=== PATIENT | female | born 1975 | race Caucasian/White ===

== ENCOUNTER 2017-11-19 14:10 | Observation (INO) | payer SELFPAY ==
[~2017-11-19] VITALS: Ht 160 cm; Wt 52.0 kg
[~2017-11-19 14:10] MED LIST: ATIVAN1 MG PO; CIPROFLOXACN500 MG PO; DENIES CURRENT MEDS; LIBRIUM25 M1 PO; NAPROSYN500 MG PO; ONDANSETRON4 MG PO; PHENERGAN25 MG/TAB PO; PREVACID30 M2 PO; PROTONIX40 MG PO; THIAMINE HCL100 MG PO; TRAMADOL HCL50 MG PO; ULTRAM50 M1 PO; ULTRAM50 MG PO; ZOFRAN ODT4 MG PO
--- NOTE | 2017-11-19 14:19 | NUR ---
PT TO ROOM VIA WHEELCHAIR.
[2017-11-19 14:58] LABS: HEMATOCRIT 40.1 % (37.0-47.0); HEMOGLOBIN 14.4 g/dl (12.0-16.0); IMMATURE GRANULOCYTES 0.8 % (0.0-1.0); MEAN CELL VOLUME 106.9 fL CALC (80.0-100.0); MEAN CORPUSCULAR HGB 38.4 pG CALC (26.0-32.0); MEAN CORPUSCULAR HGB CONC 35.9 g/L CALC (32.0-36.0); NEUT# 5.84 thou/uL (2.00-7.15); RED BLOOD COUNT 3.75 mill/uL (4.20-5.60); RED CELL DISTRI WIDTH 14.1 % (11.5-15.5)
--- NOTE | 2017-11-19 15:30 | NUR ---
PT PROVIDED MEDS FOR HEADACHE, TREMORS. DIFFICULT IV STICK, NOW WITH LEJ STARTED BY EVA. PT DID SAY THAT SHE FELT LIKE SHE MAY HAVE A SEIZURE. ATIVAN PROVIDED PER EDP ORDER, SEIZURE PADS PLACED.
[2017-11-19 15:39] LABS: ALBUMIN 4.4 g/dL (3.2-5.0); ANION GAP 23 (6-22 (CALC)); BILIRUBIN, TOTAL 0.8 mg/dL (0.0-1.4); BUN 5 mg/dL (7-17); BUN/CREATININE RATIO 10 (12-20 (CALC)); CARBON DIOXIDE 22 mmol/l (22-30); CHLORIDE 102 mmol/l (95-108); CREATININE 0.5 mg/dL (0.5-1.0); ETHYL ALCOHOL 76 mg/dl (0-30); GFR > 60 ML/MIN (>=60 (CALC)); GFR FOR AFR.AMER. > 60 ML/MIN (>=60 (CALC)); LIPASE 159 u/l (23-300); POTASSIUM 3.9 mmol/l (3.5-5.1); SGPT/ALT 61 u/l (9-52); SODIUM 142 mmol/l (137-146); TOTAL PROTEIN 7.7 g/dL (6.3-8.2)
[2017-11-19 15:43] LABS: ALKALINE PHOSPHATASE 152 u/l (38-126); SGOT/AST 111 u/l (14-36)
[2017-11-19 15:44] LABS: MAGNESIUM 0.9 mg/dL (1.6-2.3)
[2017-11-19 16:14] LABS: INTERNATIONAL NORMALIZED RATIO 1.1 RATIO (0.7-1.3); PROTHROMBIN TIME 11.9 SECONDS (9.0-12.5)
--- NOTE | 2017-11-19 16:34 | NUR ---
PT AT REST IN THE STRETCHER, HAS HAD CT SCAN. BANANA BAG INFUSING ALONG WITH MAGNESIUM. LIGHTS DIMMED FOR COMFORT. NO SEIZURE ACTIVITY SINCE ARRIVAL.
[2017-11-19 16:52] LABS: URINE BILIRUBIN - DIPSTICK NEGATIVE (NEGATIVE); URINE BLOOD DIPSTICK NEGATIVE (NEGATIVE); URINE COLOR YELLOW; URINE GLUCOSE - DIPSTICK NEGATIVE (NEGATIVE); URINE KETONE TRACE mg/dL (NEGATIVE); URINE LEUK ESTERASE NEGATIVE (NEGATIVE); URINE NITRITE - DIPSTICK NEGATIVE (Negative); URINE PROTEIN - DIPSTICK NEGATIVE (NEG-TRACE); URINE SPECIFIC GRAVITY 1.015; URINE UROBILINOGEN - DIPSTICK 0.2 E.U./dL (0.2)
[2017-11-19 16:53] LABS: URINE CLARITY CLEAR
[2017-11-19 16:56] LABS: BARBITURATES NEGATIVE (NEGATIVE); COCAINE NEGATIVE (NEGATIVE); METHADONE NEGATIVE (NEGATIVE); OXCYCODONE NEGATIVE (NEGATIVE); TETRAHYDROCANNABIONOL NEGATIVE (NEGATIVE); TRICYLIC ANTIDEPRESSANTS NEGATIVE (NEGATIVE)
--- NOTE | 2017-11-19 17:45 | NUR ---
Admission Note Report Given to: SBAR PRINTED TO FLOOR Transported by: Wheelchair X Stretcher Transported with: X Nurse Transporter X Patent IV O2 X Director Of Marketing Analytics
--- NOTE | 2017-11-19 17:47 | NUR ---
PT ARRIVED TO [facility] VIA STRETCHER ACCOMPANIED BY MATTI SERNA. PT TRANSFERED TO BED. VERY UNSTEADY GAIT. BODY TREMORRS NOTED. PT REPORTS HX OF SEIZURES. BED RAILS PADDED PER PROTOCOL. FALL PRECAUTIONS REINFORCED. PT DOES NOT AGREE TO CALL FOR ASSISTANCE AT ALL TIMES TO EXIT BED, BED ALARM SET FOR SAFETY. PLAN OF CARE DISCUSSED. NPO EXCEPT SIPS OF WATER REVIEWED. CALL LIGHT REVIEWED AND IN REACH. PT STATES UNDERSTANDING.
--- NOTE | 2017-11-19 17:55 | NUR ---
PT TAKEN TO ROOM 270 WITHOUT INCIDENT, REPORT WAS TO YUNIER.
[2017-11-19 18:43] VITALS: BP 138/83
--- NOTE | 2017-11-19 20:34 | NUR ---
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
--- NOTE | 2017-11-19 21:30 | NUR ---
REPORT RECEIVED FROM WALLY CHINO. PT AWAKE RESTING IN BED WATCHING T.V. PT IS PLEASANT, CALM AND COOPERATIVE. PT IS ALERT AND ORIENTED X4. RESP EVEN AND UNLABORED. VSS. B/P 138/83. NO TREMORS NOTED. LUNGS CLEAR BILAT. ABD SOFT AND NONDISTENDED WITH BOWEL SOUNDS PRESENT. NO LOWER EXT EDEMA NOTED. PEDAL PULSES PALPATED BILAT. LEFT IJ PATENT WITH DRESSING CLEAN,DRY AND INTACT. IVF BANANA BAG INFUSING AT 125CC/HR. PT DENIES ANY PAIN OR DISCOMFORT AT THIS TIME. PT HAD RECEIVED MOTRIN EARLIER IN THE SHIFT. TELE INTACT READING SR PER E.D. BED ALARM IS ON FOR PTS SAFETY. YELLOW FALL BRACELET AND YELLOW SOCK ON PT. PT INSTRUCTED NOT TO ATTEMPT TO GET OOB WITHOUT STAFF ASSIST AND PTS STATES SHE UNDERSTANDS. CIWA SCORE IS 0 AT THIS TIME. PT IS NPO. FREQUENT ROUNDS MADE. CALL YAO WITHIN REACH.
[2017-11-20] VITALS (7 sets, daily range): BP systolic 119–144; BP diastolic 81–90
--- NOTE | 2017-11-20 00:20 | NUR ---
PT RESTING IN BED WITH EYES CLOSED. RESP EVEN AND UNLABORED. NO DISTRESS NOTED. LEFT IJ IS PATENT NO REDNESS OR SWELLING AT SITE. IVF INFUSING. NO S/S OF ETOH WITHDRAW NOTED. CIWA SCALE 0. WILL CONTINUE TO CLOSELY MONITOR. TELE INTACT. FREQUENT ROUNDS MADE. CALL YAO WITHIN REACH. BED ALARM IS ON FOR PTS SAFETY.
--- NOTE | 2017-11-20 03:04 | NUR ---
PT WOKE BY IV. BANANA BAG FINISHED INFUSING. LEFT IJ IS PATENT. IVF NSS HUNG AND INFUSING AT 125CC/HR. PT IS CALM. PLEASANT AND COOPERATIVE. NO S/S OF WITHDRAW NOTED. PT STATES SHE HASNT BEEN ABLE TO REALLY SLEEP WELL. MEDICATED WITH LIBRIUM 25MG ONE TAB P.O. RESP EVEN AND UNLABORED. BED ALARM REMAINS ON FOR PTS SAFETY. FREQUENT ROUNDS MADE. CALL YAO WITHIN REACH.
--- NOTE | 2017-11-20 04:49 | NUR ---
PT RESTING IN BED WITH EYES CLOSED. RESP EVEN AND UNLABORED. LEFT IJ IS PATENT WITH NO REDNESS OR SWELLING AT SITE. ASSESSMENT UNCHANGED. FREQUENT ROUNDS MADE. BED ALARM REMAINS ON FOR PTS SAFETY. CALL YAO WITHIN REACH.
[2017-11-20 06:24] LABS: ANION GAP 13 (6-22 (CALC)); BUN 3 mg/dL (7-17); BUN/CREATININE RATIO 8 (12-20 (CALC)); CARBON DIOXIDE 25 mmol/l (22-30); CHLORIDE 103 mmol/l (95-108); CREATININE 0.4 mg/dL (0.5-1.0); GFR > 60 ML/MIN (>=60 (CALC)); GFR FOR AFR.AMER. > 60 ML/MIN (>=60 (CALC)); POTASSIUM 3.2 mmol/l (3.5-5.1); SODIUM 138 mmol/l (137-146)
[2017-11-20 06:25] LABS: MAGNESIUM 1.8 mg/dL (1.6-2.3)
--- NOTE | 2017-11-20 07:49 | NUR ---
SHIFT CHANGE REPORT FROM VAMSI LOWERY AWAKE ALERT AND ORIENTED, NO C/O DISCOMFORT AT THIS TIME, TELE MONITOR IN PLACE, CALL YAO IN REACH.
--- NOTE | 2017-11-20 12:20 | NUR ---
REPORT RECEIVED FROM MATTI MCCLENDON;PT RESTING IN SUPINE POSITION;INTRODUCED SELF TO PT AND POC DISCUSSED;PT COMPLAINS OF ABDOMINAL PAIN,PAIN MEDICATION SCHEDULING RE-EDUCATED AND PT VERBALIZES UNDERSTANDING;IV SITE PATENT;ENCOURAGED TO CALL FOR ASSISTANCE IF NEEDED;CALL LIGHT IN REACH;WILL CONTINUE TO MONITOR
--- NOTE | 2017-11-20 13:25 | NUR ---
PT RESTING IN SUPINE POSITION WITH SEIZURE PRECAUTIONS IN PLACE;NOTIFIED PT OF WAIT TIME FOR NEW ORDERS TO BE PLACED;PT CONTINUES TO COMPLAIN OF ABDOMINAL PAIN BUT REFUSES PAIN MEDICATION CURRENTLY ON MAR;IV SITE TO [facility] PATENT INFUSING NS AT 125ML/HR WITH EASE,SITE APPEARS HEALTHY;TELE MONITOR IN PLACE;ENCOURAGED PT TO CALL FOR ASSISTANCE IF NEEDED;CALL LIGHT IN REACH;WILL CONTINUE TO MONITOR
--- NOTE | 2017-11-20 13:45 | NUR ---
PT MEDICATED WITH TORADOL 15MG IVP FOR ABDOMINAL PAIN RATING 7/10 ON THE PAIN SCALE;WILL MONITOR FOR EFFECTIVENESS
--- NOTE | 2017-11-20 14:40 | NUR ---
PT RESTING IN SEMI FOWLERS POSITION;PT REPORTS PAIN LEVEL IS UNCHANGED SINCE TORADOL ADMINISTRATION;ANRP TO BE NOTIFIED;WILL CONTINUE TO MONITOR
--- NOTE | 2017-11-20 16:30 | NUR ---
PT RESTING IN SUPINE POSITION;IV FLUIDS INFUSING WELL TO RIJ;SEIZURE PRECAUTIONS IN PLACE;PT DENIES ANY CURRENT NEEDS;RESPIRATIONS EVEN AND UNLABORED ON RA;TELE MONITOR IN PLACE;ENCOURAGED TO CALL FOR ASSISTANCE IF NEEDED;CALL LIGHT IN REACH;WILL CONTINUE TO MONITOR
--- NOTE | 2017-11-20 19:15 | NUR ---
REPORT RECEIVED FROM DAY NURSE. PT.IS IN HIGH FOWLERS IN BED WATCHING TV W/LIGHTS LOW. PT.DENIES ANY PAIN/N/V AT THIS TIME. NO S/S OF DISTRESS. CALL LIGHT IS AT SIDE AND PT.HAS BEEN ENCOURAGED TO CALL IF ANY NEEDS ARISE.
--- NOTE | 2017-11-20 21:55 | NUR ---
PT.MEDICATED W/ATIVAN REQUESTED, SHE REPORTS "FEELING HOT," AND STATES THAT SHE FEELS LIKE THIS WHEN A SEIZURE IS THREATENING. PT.DENIES ANY OTHER DISCOMFORT AT THIS TIME EXCEPT HUNGER. PROVIDED W/DRINK AND BROTH. ASSESSMENT COMPLETE, ABD SOFT/TENDERNESS IN RIGHT LOWER AND LEFT UPPER AND LOWER QUADRANTS. LUNG SOUNDS ARE CLEAR, SKIN AND NEURO'S INTACT. PT.UPRIGHT IN BED EATING BROTH WATCHING TV W/LIGHTS ON AND CALL LIGHT AT SIDE.
--- NOTE | 2017-11-20 23:52 | NUR ---
PT.MEDICATED W/LIBRIUM AT THIS TIME. V/S ASSESSED, WILL CONTINUE TO MONITOR NEEDED. CALL LIGHT W/IN REACH. WATER PO REFRESHED. PT.DENIES ANY OTHER NEEDS AT THIS TIME.
[2017-11-21 04:10] VITALS: BP 130/94
--- NOTE | 2017-11-21 04:10 | NUR ---
PT.V/S ASSESSED. LIGHTS AND TV ARE OUT, PT WAS SLEEPING UPON ENTERING ROOM. NO S/S OF DISTRESS NOTED AT THIS TIME. CALL LIGHT AT BEDSIDE. NO TREMORS, CONFUSION, AGITATION, DISORIENTATION, SWEATS OR OTHER SIGNS OF W/DRAWAL NOTED AT THIS TIME. WILL CONTINUE TO MONITOR.
--- NOTE | 2017-11-21 05:51 | NUR ---
PT.MEDICATED W/LIBRIUM ORDERS PROVIDE. IV PUMP CLEARED FOR FLUID INTAKE, FLUIDS ARE RUNNING ORDERED/SITE APPEARS HEALTHY. PT.DENIES ANY OTHER NEEDS AT THIS TIME. CALL LIGHT IS W/IN REACH
--- NOTE | 2017-11-21 07:00 | NUR ---
REPORT RECEIVED FROM MATTI MAHONEY;PT APPEARS TO BE SLEEPING IN SUPINE POSITION,WAKES EASILY;INTRODUCED SELF TO PT AND POC DISCUSSED;IV SITE PATENT;RESPIRATIONS EVEN AND UNLABORED ON RA;ENCOURAGED PT TO EXPRESS ALL NEEDS AND CONCERNS;BED IN THE LOWEST POSITION WITH CALL LIGHT IN REACH;WILL CONTINUE TO MONITOR
[2017-11-21 08:44] VITALS: BP 129/73
--- NOTE | 2017-11-21 08:45 | NUR ---
PT RESTING IN SUPINE POSITION;VS OBTAINED AND ASSESSMENT COMPLETED;RESPIRATIONS EVEN AND UNLABORED ON RA,CLEAR LUNG SOUNDS NOTED;ABDOMEN SOFT ON PALPATION AND ACTIVE IN ALL 4 QUADRANTS,TENDERNESS NOTED THROUGHOUT;STRONG PEDAL PULSES;SKIN INTACT;#20G TO RIJ INFUSING NS @ 125ML/HR,SITE APPEARS HEALTHY;PT DENIES ANY ABDOMINAL PAIN OR NAUSEA;ENCOURAGED TO REPORT PAIN;TELE MONITOR IN PLACE;SEIZURE PRECAUTIONS NOTED;CALL LIGHT IN REACH;WILL CONTINUE TO MONITOR
--- NOTE | 2017-11-21 09:00 | NUR ---
MULTIPLE ATTEMPTS MADE TO OBTAINED MORNING LABS THIS MORNING,UNSUCCESSFUL;WILL CONTINUE TO MONITOR
--- NOTE | 2017-11-21 09:40 | NUR ---
TRISTAN GIBSON,ANRP AT BEDSIDE
[2017-11-21] MEDS ORDERED: LIBRIUM25 M1 PO (10:18)
[2017-11-21 11:01] LABS: HEMATOCRIT 40.2 % (37.0-47.0); HEMOGLOBIN 14.3 g/dl (12.0-16.0); MEAN CELL VOLUME 108.9 fL CALC (80.0-100.0); MEAN CORPUSCULAR HGB 38.8 pG CALC (26.0-32.0); MEAN CORPUSCULAR HGB CONC 35.6 g/L CALC (32.0-36.0); RED BLOOD COUNT 3.69 mill/uL (4.20-5.60)
[2017-11-21 11:17] LABS: MAGNESIUM 1.6 mg/dL (1.6-2.3)
[2017-11-21] MEDS ORDERED: B-1100 MG PO (11:22)
[2017-11-21] MEDS ORDERED: FOLIC ACID1 M1 PO (11:22)
--- NOTE | 2017-11-21 11:25 | NUR ---
IV SITE REMOVED WITH CATHETER INTACT;PT ASSISTED TO SHOWER AT THIS TIME
--- NOTE | 2017-11-21 11:50 | NUR ---
D/C INFORMATION DISCUSSED AT THIS TIME AND ALL QUESTIONS ANSWERED;PRESCRIPTIONS GIVEN AND EXPLAINED INDEPTH;PT DECLINED WC FOR DISCHARGED;AWAITING RIDE
--- NOTE | 2017-11-21 11:57 | NUR ---
Discharge instructions given. Patient verbalizes understanding of same. Discharged in stable condition via Ambulatory to Home with *Other. All belongings sent with pt.
== END 2017-11-21 11:57 | disposition home or self-care (01) | DRG 440 ==
LOC: ED 14:10 → ED-I 16:42 → ED 16:54 → MS2 16:55
PROVIDERS: Family Medicine; Nurse Practitioner; ADMIT Internal Medicine; ATTEND Internal Medicine
DX: K86.0 Alcohol-induced chronic pancreatitis (principal); E83.42 Hypomagnesemia; F10.20 Alcohol dependence, uncomplicated; I10 Essential (primary) hypertension; F17.210 Nicotine dependence, cigarettes, uncomplicated
CPT/HCPCS: G0378; J2060; J3475; Q9967